=== PATIENT | male | born 1990 | race Caucasian/White ===

== ENCOUNTER 2019-05-18 22:30 | Emergency (ER) | payer MEDICAID ==
[~2019-05-18] VITALS: Ht 170.2 cm; Wt 108.4 kg
[2019-05-18 22:36] VITALS: Ht 170.2 cm; Wt 108.4 kg
[2019-05-18 23:57] VITALS: BP 132/88
== END 2019-05-18 23:57 | disposition home or self-care (01) ==
LOC: ED 22:30
DX: L60.0 Ingrowing nail (principal); L03.012 Cellulitis of left finger; I10 Essential (primary) hypertension; E11.9 Type 2 diabetes mellitus without complications; E78.00 Pure hypercholesterolemia, unspecified; Z88.1 Allergy status to other antibiotic agents
CPT/HCPCS: J2001